=== PATIENT | female | born 1975 | race Caucasian/White ===

== ENCOUNTER → 2016-10-10 | Outpatient (CLI) | payer BC ==
[~2016-10-10] MED LIST: MOTRIN 600600 MG/TAB PO; PERCOCET 325 MG1 TA2 PO; PRENATAL1 TA1
== END ==
LOC: MC.RAD 08:40
DX: Z12.31 Encounter for screening mammogram for malignant neoplasm of breast (principal)

== ENCOUNTER → 2017-11-30 | Outpatient (CLI) | payer BC | LOC: MC.RAD 11-23 11:20 | DX: Z12.31 Encounter for screening mammogram for malignant neoplasm of breast (principal) ==

== ENCOUNTER → 2018-12-09 | Outpatient (CLI) | payer BC | LOC: MC.RAD 11:01 | DX: Z12.31 Encounter for screening mammogram for malignant neoplasm of breast (principal) ==

== ENCOUNTER → 2019-08-29 | Outpatient (CLI) | payer BC | LOC: COL.RAD 13:15 | DX: E04.1 Nontoxic single thyroid nodule (principal); Z80.8 Family history of malignant neoplasm of other organs or systems ==

== ENCOUNTER → 2020-10-12 | Outpatient (CLI) | payer BC | LOC: MC.RAD 15:36 | DX: Z12.31 Encounter for screening mammogram for malignant neoplasm of breast (principal) ==

== ENCOUNTER → 2021-10-24 | Outpatient (CLI) | payer BC | LOC: MC.RAD 11:29 | DX: Z12.31 Encounter for screening mammogram for malignant neoplasm of breast (principal) ==

== ENCOUNTER → 2023-12-17 | Outpatient (CLI) | payer BC | LOC: MC.RAD 07:59 | DX: Z12.31 Encounter for screening mammogram for malignant neoplasm of breast (principal) ==